=== PATIENT | female | born 1955 | race African-American/Black ===

== ENCOUNTER 2019-01-23 06:19 | Emergency (ER) | payer OTHER, MEDICAID ==
[~2019-01-23] VITALS: Ht 162.6 cm; Wt 49.0 kg
[~2019-01-23 06:19] MED LIST: ASPI-1393 PO; ATOR40TA70 PO; LISI-604 PO; METF-414 PO
[2019-01-23] MEDS ORDERED: TRAMADOL 50MG TABLET PO ONE (07:30)
[2019-01-23 08:02] VITALS: BP 109/74
== END 2019-01-23 08:03 | disposition left against medical advice (07) ==
LOC: ER 06:19
DX: S20.229A Contusion of unspecified back wall of thorax, initial encounter (principal); S30.0XXA Contusion of lower back and pelvis, initial encounter; R45.1 Restlessness and agitation; E03.9 Hypothyroidism, unspecified; G35 Multiple sclerosis; F17.200 Nicotine dependence, unspecified, uncomplicated; Z98.890 Other specified postprocedural states; Z88.0 Allergy status to penicillin; Z88.6 Allergy status to analgesic agent; Z88.5 Allergy status to narcotic agent; Z79.82 Long term (current) use of aspirin; Z79.899 Other long term (current) drug therapy; Y08.89XA Assault by other specified means, initial encounter; Y93.89 Activity, other specified; Y92.89 Other specified places as the place of occurrence of the external cause; Y99.8 Other external cause status
CPT/HCPCS: 99281

== ENCOUNTER 2020-08-12 06:39 | Emergency (ER) | payer BC, MEDICAID ==
[~2020-08-12] VITALS: Ht 162.6 cm; Wt 59.0 kg
[~2020-08-12 06:39] MED LIST changes: -ASPI-1393 PO; +ASPI-1497 PO
[2020-08-12 06:58] VITALS: BP 191/113
[2020-08-12] MEDS ORDERED: ACETAMINOPHEN 325MG TABLET PO ONE (09:15)
== END 2020-08-12 11:55 | disposition home or self-care (01) ==
LOC: ER 06:39
DX: S62.660A Nondisplaced fracture of distal phalanx of right index finger, initial encounter for closed fracture (principal); M79.641 Pain in right hand; I10 Essential (primary) hypertension; Z88.0 Allergy status to penicillin; Z88.5 Allergy status to narcotic agent; Z88.6 Allergy status to analgesic agent; Z79.82 Long term (current) use of aspirin; X58.XXXA Exposure to other specified factors, initial encounter; Y93.89 Activity, other specified; Y92.018 Other place in single-family (private) house as the place of occurrence of the external cause
CPT/HCPCS: 29130; 73130; 99283

== ENCOUNTER 2021-03-30 22:17 | Emergency (ER) | payer BC, MEDICAID, OTHER ==
[~2021-03-30 22:17] MED LIST changes: -LISI-604 PO; +LISI20TA31 PO
== END 2021-03-30 23:30 | disposition left against medical advice (07) ==
LOC: ER 22:17
DX: Z53.21 Procedure and treatment not carried out due to patient leaving prior to being seen by health care provider (principal)

== ENCOUNTER 2022-01-14 05:51 | Emergency (ER) | payer OTHER ==
[~2022-01-14] VITALS: Ht 160 cm; Wt 61.5 kg
[2022-01-14 06:23] VITALS: BP 133/80
[2022-01-14] MEDS ORDERED: LIDOCAINE HCL/EPINEPHRINE 1%-EPI 1:100,000 50 ML VIAL INFIL ONE (09:00)
== END 2022-01-14 11:18 | disposition home or self-care (01) ==
LOC: ER 05:51
DX: S60.452A Superficial foreign body of right middle finger, initial encounter (principal); I10 Essential (primary) hypertension; E11.9 Type 2 diabetes mellitus without complications; Z79.82 Long term (current) use of aspirin; Z79.84 Long term (current) use of oral hypoglycemic drugs; Z88.5 Allergy status to narcotic agent; Z88.6 Allergy status to analgesic agent; Z88.0 Allergy status to penicillin; W45.8XXA Other foreign body or object entering through skin, initial encounter; W22.8XXA Striking against or struck by other objects, initial encounter; Y93.89 Activity, other specified; Y92.018 Other place in single-family (private) house as the place of occurrence of the external cause
CPT/HCPCS: 10120; 20520; 73140; 99283; 99284

== ENCOUNTER 2022-09-28 03:18 | Inpatient (IN) | payer OTHER, MEDICAID ==
[~2022-09-28] VITALS: Ht 162.6 cm; Wt 62.0 kg
[2022-09-28 04:29] LABS: BASOPHILS % 0.2 % (0.0-2.0); EOSINOPHILS % 2.3 % (0.0-5.0); HEMATOCRIT. 43.1 % (36.0-48.0); HEMOGLOBIN. 14.4 g/dL (12.0-16.0); LYMPHOCYTES % 21.6 % (20.0-50.0); MEAN CORPUSCULAR HEMOGLOBIN 29.3 pg (28.0-32.0); MEAN CORPUSCULAR VOLUME 87.9 fL (81.0-99.0); MEAN PLATELET VOLUME 10.2 fl (7.4-10.4); MONOCYTES % 8.9 % (2.0-8.0); PLATELET 159 x1000/uL (130-400); RED CELL DISTRIBUTION WIDTH 13.9 % (11.6-14.6)
[2022-09-28 04:36] LABS: CHLORIDE 108 mEq/L (98-107)
[2022-09-28 06:11] LABS: CLARITY URINE CLEAR (CLEAR); COLOR URINE YELLOW (YELLOW); KETONES URINE NEGATIVE (NEGATIVE); LEUKOCYTE ESTERASE URINE NEGATIVE (NEGATIVE); NITRITE URINE NEGATIVE (NEGATIVE); OCCULT BLOOD URINE NEGATIVE (NEGATIVE); PH URINE 8.5 (4.5-8.0); PROTEIN URINE NEGATIVE (NEGATIVE); SPECIFIC GRAVITY URINE 1.008 (1.005-1.030); UROBILINOGEN URINE 0.2 E.U./dL (0.2-1.0)
[2022-09-28] MEDS ORDERED: MORPHINE SULFATE 4 MG/ML CPJ (NOT FOR IM USE) IV ONE (07:00)
[2022-09-28] MEDS ORDERED: ONDANSETRON HCL 4MG/2ML INJ IV ONE (07:00)
[2022-09-28] MEDS ORDERED: DIPHENHYDRAMINE 50MG/ML VIAL IV PRN (18:30)
[2022-09-28] MEDS ORDERED: CLONIDINE 0.1MG TABLET PO PRN (18:30)
[2022-09-28] MEDS ORDERED: MAGNESIUM/ALUMINUM HYDROXIDE/SIMETHICONE 30ML UDC PO PRN (18:30)
[2022-09-28] MEDS ORDERED: ACETAMINOPHEN 325MG TABLET PO PRN ×2 (18:30)
[2022-09-28] MEDS ORDERED: ONDANSETRON HCL 4MG/2ML INJ IV PRN (18:30)
[2022-09-28] MEDS ORDERED: DEXTROSE 50% WATER 50ML SYRINGE IV PRN (18:30)
[2022-09-28] MEDS ORDERED: ZOLPIDEM TARTRATE 5MG TABLET PO PRN (18:30)
[2022-09-28] MEDS: BLOOD SUGAR DIAGNOSTIC STRIP TEST SCH (20:09)
[2022-09-28] MEDS: INSULIN LISPRO 100 UNITS/ML SUBCUT SCH (20:09)
[2022-09-28] MEDS: HYDRALAZINE 20MG/ML VIAL IV PRN (20:10)
[2022-09-28] MEDS: LISINOPRIL 20MG TABLET PO SCH (20:10)
[2022-09-28] MEDS: SODIUM CHLORIDE 0.9% INJ 3ML FLUSH IVF SCH (21:02)
[2022-09-28] MEDS ORDERED: DILTIAZEM HCL 5MG/ML 5ML VIAL IV NR (21:15)
[2022-09-28] MEDS ORDERED: DILTIAZEM HCL 125 MG in DEXT 5% WATER 100 ML IV NR (22:00)
[2022-09-29] MEDS ORDERED: DILTIAZEM HCL 5MG/ML 5ML VIAL IV NR ×2 (03:30→17:00)
[2022-09-29 05:17] LABS: BASOPHILS % 0.7 % (0.0-2.0); CHLORIDE 101 mEq/L (98-107); HEMATOCRIT. 49.2 % (36.0-48.0); HEMOGLOBIN. 16.4 g/dL (12.0-16.0); LYMPHOCYTES % 9.8 % (20.0-50.0); MEAN CORPUSCULAR HEMOGLOBIN 29.1 pg (28.0-32.0); MEAN CORPUSCULAR VOLUME 87.4 fL (81.0-99.0); MEAN PLATELET VOLUME 11.1 fl (7.4-10.4); MONOCYTES % 3.7 % (2.0-8.0); NEUTROPHILS % 85.8 % (40.0-76.0); PLATELET 168 x1000/uL (130-400); RED BLOOD CELL COUNT 5.62 mill/uL (4.2-5.4); RED CELL DISTRIBUTION WIDTH 13.8 % (11.6-14.6)
[2022-09-29] MEDS: SODIUM CHLORIDE 0.9% INJ 3ML FLUSH IVF SCH ×2 (06:36→14:39)
[2022-09-29] MEDS: BLOOD SUGAR DIAGNOSTIC STRIP TEST SCH ×3 (06:36→16:30)
[2022-09-29] MEDS: INSULIN LISPRO 100 UNITS/ML SUBCUT SCH ×3 (06:47→14:14)
[2022-09-29] MEDS: LISINOPRIL 20MG TABLET PO SCH (09:00)
[2022-09-29] MEDS ORDERED: POTASSIUM CHLORIDE INJ 40 MEQ in DEXT 5% WATER 500 ML IV NR (12:00)
[2022-09-29] MEDS ORDERED: CLONIDINE 0.2MG TABLET PO PRN (12:51)
[2022-09-29] MEDS: HYDRALAZINE 20MG/ML VIAL IV PRN (15:53)
[2022-09-29 17:05] VITALS: BP 173/115
[2022-09-29] MEDS ORDERED: DILTIAZEM HCL 125 MG in DEXTROSE 5% WATER 125 ML IV SCH (17:30)
== END 2022-09-29 18:21 | disposition left against medical advice (07) | DRG 440 ==
LOC: ER 03:18 → MICUSO 07:20 → CMPBEDREQ 08:15
PROVIDERS: ADMIT Internal Medicine; ATTEND Internal Medicine
DX: K85.90 Acute pancreatitis without necrosis or infection, unspecified (principal); E11.9 Type 2 diabetes mellitus without complications; I11.0 Hypertensive heart disease with heart failure; I50.9 Heart failure, unspecified; E87.6 Hypokalemia; Z53.29 Procedure and treatment not carried out because of patient's decision for other reasons; Z88.0 Allergy status to penicillin; Z88.6 Allergy status to analgesic agent; Z90.49 Acquired absence of other specified parts of digestive tract; R00.0 Tachycardia, unspecified
CPT/HCPCS: 36415; 71045; 74176; 80053; 81003; 82962; 83036; 83735; 83880; 84484; 85025; 93005; 99285; J0360; J1815; J2270; J2405; J3480; J3490; J7060

== ENCOUNTER 2023-05-17 13:51 | Emergency (ER) | payer OTHER, MEDICAID, MEDICARE ==
[~2023-05-17] VITALS: Ht 162.6 cm; Wt 59.0 kg
[2023-05-17 14:05] VITALS: O2SAT 99
[2023-05-17 15:14] LABS: CHLORIDE 108 mEq/L (98-107); INDEX HEMOLYSI 1 (1-3); INDEX ICTERIC 1 (1-4); INDEX LIPEMIC 1 (1-3); POTASSIUM 3.7 mEq/L (3.5-5.1); SODIUM 136 mEq/L (136-145)
[2023-05-17 15:23] LABS: ALANINE AMINOTRANSFERASE 12 IU/L (13-61); ALBUMIN 3.8 g/dL (3.4-5.0); ASPARTATE AMINOTRANSFERASE 10 IU/L (15-37); BASOPHILS % 1.2 % (0.0-2.0); BILIRUBIN TOTAL 0.3 mg/dL (0.1-1.0); CALCIUM 9.7 mg/dL (8.5-10.1); CARBON DIOXIDE 27 mEq/L (21-32); CREATININE 0.6 mg/dL (0.6-1.3); EOSINOPHILS % 1.6 % (0.0-5.0); GLUCOSE 112 mg/dL (70-105); HEMATOCRIT. 42.5 % (36.0-48.0); HEMOGLOBIN. 14.4 g/dL (12.0-16.0); MEAN CORPUSCULAR HEMOGLOBIN 30.8 pg (28.0-32.0); MEAN CORPUSCULAR HGB CONC 33.8 g/dL (31.0-37.0); MEAN CORPUSCULAR VOLUME 90.9 fL (81.0-99.0); MEAN PLATELET VOLUME 10.5 fl (7.4-10.4); NEUTROPHILS % 46.2 % (40.0-76.0); PLATELET 160 x1000/uL (130-400); PROTEIN TOTAL 7.6 g/dL (6.0-8.3); RED BLOOD CELL COUNT 4.68 mill/uL (4.2-5.4); RED CELL DISTRIBUTION WIDTH 13.9 % (11.6-14.6); UREA NITROGEN BLOOD 10 mg/dL (7-21); WHITE BLOOD COUNT 4.4 x1000/uL (4.5-11.0)
[2023-05-17 15:24] LABS: CLARITY URINE CLEAR (CLEAR); COLOR URINE YELLOW (YELLOW); GLUCOSE URINE NEGATIVE (NEGATIVE); KETONES URINE NEGATIVE (NEGATIVE); LEUKOCYTE ESTERASE URINE NEGATIVE (NEGATIVE); NITRITE URINE NEGATIVE (NEGATIVE); OCCULT BLOOD URINE NEGATIVE (NEGATIVE); PROTEIN URINE NEGATIVE (NEGATIVE); SPECIFIC GRAVITY URINE 1.011 (1.005-1.030); UROBILINOGEN URINE 0.2 E.U./dL (0.2-1.0)
[2023-05-17 16:00] VITALS: BP 140/77; PULSE 73; RESP 18
[2023-05-17] MEDS ORDERED: ACETAMINOPHEN 500MG TABLET PO ONE (16:30)
[2023-05-17] MEDS ORDERED: POLY17PO3 MT (16:32)
[2023-05-17] MEDS ORDERED: ACET-2708 MT (16:32)
[2023-05-17 17:12] VITALS: TEMP 98.5
== END 2023-05-17 17:12 | disposition home or self-care (01) ==
LOC: ER 13:51
DX: R10.84 Generalized abdominal pain (principal); K59.00 Constipation, unspecified; I11.0 Hypertensive heart disease with heart failure; I50.9 Heart failure, unspecified; E11.9 Type 2 diabetes mellitus without complications; Z88.0 Allergy status to penicillin
CPT/HCPCS: 36415; 74176; 80053; 81003; 85025; 99284